=== PATIENT | female | born 1975 | race Caucasian/White ===

== ENCOUNTER 2017-01-27 03:25 | Emergency (ER) | payer MEDICAID ==
[2017-01-27 04:29] VITALS: BP 121/83
== END 2017-01-27 04:29 | disposition home or self-care (01) ==
LOC: ED 03:25
DX: N39.0 Urinary tract infection, site not specified (principal)
CPT/HCPCS: J0696

== ENCOUNTER 2017-03-10 11:21 | Emergency (ER) | payer MEDICAID ==
[~2017-03-10] VITALS: Ht 162.6 cm; Wt 84.1 kg
[2017-03-10 12:33] LABS: BASOPHIL % 0.6 % (0-2); PLATELET COUNT 258 x10^3mcL (130-400)
[2017-03-10 13:12] LABS: T4(THYROXINE) 8.9 ug/dL (4.7-13.3)
[2017-03-10 14:11] VITALS: BP 113/67
== END 2017-03-10 14:11 | disposition home or self-care (01) ==
LOC: ED 11:21
PROVIDERS: Emergency Medicine
DX: N93.9 Abnormal uterine and vaginal bleeding, unspecified (principal); D25.9 Leiomyoma of uterus, unspecified
CPT/HCPCS: 36415

== ENCOUNTER 2017-06-10 12:54 | Emergency (ER) | payer MEDICAID ==
[~2017-06-10] VITALS: Ht 162.6 cm; Wt 83.9 kg
[2017-06-10 14:33] LABS: BASOPHIL % 0.5 % (0-2); PLATELET COUNT 249 x10^3mcL (130-400); RED CELL DISTRIBUTION WIDTH 12.7 % (11.5-14.5)
[2017-06-10 14:53] LABS: CALCIUM 8.7 mg/dL (8.5-10.1); CARBON DIOXIDE 28.3 mmol/L (21-32); CHLORIDE SERUM 103 mmol/L (98-107); CREATININE SERUM 0.7 mg/dL (0.6-1.0); GFR1 > 60 mL/min; GLUCOSE SERUM 92 mg/dL (74-106); SODIUM SERUM 139 mmol/L (136-145)
[2017-06-10 14:58] LABS: ALBUMIN 3.7 g/dL (3.4-5.0); ALKALINE PHOSPHATASE 86 U/L (46-116); ALT/SGPT 54 U/L (14-59); AST/SGOT 23 U/L (15-37); BILIRUBIN TOTAL 0.5 mg/dL (0.20-1.00); TOTAL PROTEIN, SERUM 7.6 g/dL (6.4-8.2)
[2017-06-10 16:27] VITALS: BP 118/64
== END 2017-06-10 16:27 | disposition home or self-care (01) ==
LOC: ED 12:54
PROVIDERS: Emergency Medicine
DX: N92.6 Irregular menstruation, unspecified (principal)